=== PATIENT | female | born 1975 ===

== ENCOUNTER 2022-09-20 12:13 | Emergency (ER) | payer OTHER, SELFPAY ==
--- NOTE | 2022-09-20 12:39 | ED.HA ---
HPI - Headache General Chief Complaint: Headache Stated Complaint: pressure in head for 3/4 weeks, migraine Time Seen by Provider: 09/20/22 12:49 Source: patient Mode of arrival: ambulatory Limitations: no limitations History of Present Illness HPI Narrative: Patient is a 47 year old assigned female at with a history of migraines presenting to the emergency department today with nasal congestion and persistent migraine. Patient states that for the last few weeks she has been very congested and has had a right sided migraine. Patient states that her migraine medication helps some but she continues to have this full feeling. Patient denies any dizziness, lightheadedness, abdominal pain, nausea, vomiting, fever, chills, blurry vision, double vision, loss of vision, chest pain, difficulty breathing, shortness of breath, back pain, night sweats, pain with urination, increased urinary frequency, increased urinary urgency, blood in her urine or stool, syncope or a near syncopal episode, recent trauma or falls, bowel incontinence, bladder incontinence, bowel retention, bladder retention, or any other complaints at this time. MD elicited complaint: headache Severity: mild Quality & Timing: aching Exacerbating factors: none Related Data Previous Rx's Medication Instructions Recorded amoxicillin 875 mg-potassium 1 tab PO BID 7 days #14 tabs 09/20/22 clavulanate 125 mg tablet Allergies Allergy/AdvReac Type Severity Reaction Status Date / Time diclofenac Allergy Unknown Verified 09/20/22 12:44 doxycycline Allergy Rash Verified 09/20/22 12:44 ibuprofen [From Motrin] Allergy Gastrointestinal Verified 09/20/22 12:44 Upset levofloxacin Allergy Dizziness Verified 09/20/22 12:44 promethazine [From Phenergan] Allergy Anxiety Verified 09/20/22 12:44 ketorolac [From Toradol] AdvReac Hives Verified 09/20/22 12:44 Sulfa (Sulfonamide AdvReac Itching Verified 09/20/22 12:44 Antibiotics) tramadol [From Ultram] AdvReac Agitated Verified 09/20/22 12:44 Review of Systems Constitutional: Constitutional: Reports no additional constitutional complaints, Denies chills, Denies fever(s), Reports headache(s) and Denies night sweats Eyes: Eyes: Reports no additional eye complaints, Denies blurry vision, Denies change in vision, Denies diplopia, Denies eye discharge, Denies loss of vision and Denies eye pain ENT: Denies dizziness, Reports headache(s) and Reports nasal congestion Cardiovascular: Cardiovascular: Reports no additional cardiovascular complaints, Denies chest pain, Denies lightheadedness, Denies Loss of Consciousness and Denies dyspnea Respiratory: Respiratory: Reports no additional respiratory complaints and Denies dyspnea Gastrointestinal: Gastrointestinal: Reports no additional gastrointestinal complaints, Denies abdominal pain, Denies melena, Denies hematochezia, Denies change in bowel habits and Denies change in stool character Genitourinary: Genitourinary: Denies hematuria, Denies urinary frequency, Denies dysuria, Denies urinary incontinence, Denies urinary hesitancy and Denies urinary urgency Musculoskeletal: Musculoskeletal: Reports no additional musculoskeletal complaints, Denies numbness and Denies tingling Neurologic: Denies dizziness, Reports headache(s), Denies loss of vision, Denies numbness and Denies tingling Psychiatric: Psychiatric: Reports no additional psychiatric complaints Endocrine: Endocrine: Reports no additional endocrine complaints Hematologic/Lymphatic: Hematologic/Lymphatic: Reports no additional hematologic/lymphatic complaints Allergic/Immunologic: Allergic/Immunologic: Reports no additional allergic/immunologic complaints PMFSH Past Medical History Attestation statement: The following information was validated with the patient. Source: old records reviewed and nursing notes reviewed Social History Social History Advance Directives: No Advance Directives Information Provided: No Physical Exam Vital Signs: Vital Signs: Last Vital Signs Temp 98.8 F 09/20/22 12:40 Pulse 81 09/20/22 12:40 Resp 16 09/20/22 12:40 BP 106/78 09/20/22 12:40 Pulse Ox 98 09/20/22 12:40 O2 Del Method Room Air 09/20/22 12:40 BMI result Body Mass Index 25.7 Const: General: cooperative, no acute distress, alert and awake Nutritional Appearance: well nourished Orientation/consciousness: patient oriented x3 Limitations: no limitations HEENT: Head: Yes normal to inspection and Yes atraumatic Ears: hearing grossly normal bilaterally and external ears normal General nose exam: Normal external nose present, no nasal discharge noted and no epistaxis Face and sinus: Yes normal facial exam, No abrasion, No laceration and Yes sinus tenderness Mouth: Normal oral and palatal mucosa present, no drooling and no muffled voice Eyes: General: appearance normal, both eyes and all related structures Periorbital: periorbital findings normal Eyelids: Yes eyelids normal Conjunctivae: conjunctivae normal Pupils: Equal, round and reactive pupils present EOM: EOMs intact bilaterally Neck: Neck: Yes normal visual inspection, Yes full ROM and Yes no lymphadenopathy Chest: Chest palpation & inspection: normal inspection of the chest Resp: Effort & Inspection: normal respiratory effort and able to speak in complete sentences GI: Inspection: Yes normal to inspection Neuro: General: patient oriented x3 and moves all extremities Cranial nerves: Yes Equal, round and reactive pupils present Cognition (Neuro): normal cognition Motor exam (neuro): 5/5 motor strength present throughout Sensory Exam: Normal double simultaneous stimulation for sensation Coordination: [id number] test normal Extrem: General: Yes normal to inspection, Yes full ROM and Yes capillary refill normal Psych: Appearance: grossly normal Mental Status: mental status grossly normal Affect: normal affect Attitude: cooperative Thought process: Normal thought process present Thought content: Normal thought content present Insight: Good insight present (Psych) NIH Stroke Scale Internal: Initial- Upon Arrival Time: 12:39 Level of Consciousness: Alert Level of Consciousness Questions: Answers both questions correctly Level of Consciousness Commands: Performs both tasks correctly Best Gaze: Normal Visual: No visual loss Facial Palsy: Normal Motor Arm (Right): No drift Motor Arm (Left): No drift Motor Leg (Right): No drift Motor Leg (Left): No drift Limb Ataxia: Absent Sensory: Normal Best Language: No aphasia Dysarthia: Normal Extinction and Inattention: No abnormality Score: 0 Course Course Course Narrative: This is a rapid medical exam. Deferred additional HPI, ROS, PE to primary provider 47 yo female with history of migraines here with 3-4 weeks of headache, dizziness, head pressure, blurry vision bilateral, nausea, photophobia. Feels different from typical migraines. VSS Medical Decision Making Medical Decision Making MDM Narrative: Patient is a 47 year old assigned female at with a history of migraines presenting to the emergency department today with a headache and nasal congestion. Patient's physical exam was as noted in the physical examination portion of this chart. I explained my physical exam findings to the patient. I answered all questions asked by the patient. I stressed the importance of the patient taking her medication as prescribed. I stressed the importance of the patient following up with her primary care provider. I stressed the importance of the patient returning to the emergency department immediately if her symptoms were to worsen or if she were to develop any dizziness, shortness of breath, difficulty breathing, chest pain, blurry vision, loss of vision, nausea, vomiting, abdominal pain, fever, chills, back pain, or any other complaints. Patient verbalized agreement and understanding with this treatment plan and discharge. Differential Diagnosis Differential Diagnoses: The differential diagnosis associated with the presentation includes sinusitis, migraine Discharge Plan Discharge Clinical Impression: Sinusitis Patient Disposition: Home, Self-Care Instructions: Sinusitis (ED) Additional Instructions: Follow up with your primary care provider. Return to the emergency department immediately if your symptoms worsen or if you develop any dizziness, shortness of breath, difficulty breathing, chest pain, blurry vision, loss of vision, nausea, vomiting, abdominal pain, fever, chills, back pain, or any other complaints. Prescriptions: New amoxicillin-pot clavulanate 875-125 mg tablet 1 tab PO BID 7 Days Qty: 14 0RF Referrals: [facility] [[place] Group] (Call to establish and follow up with a primary care provider. If you already have a primary care provider, please follow up with them.) [facility] [Provider Group] (Call to establish and follow up with a primary care provider. If you already have a primary care provider, please follow up with them.) [facility] [Provider Group] (Call to establish and follow up with a primary care provider. If you already have a primary care provider, please follow up with them.) Stand Alone Forms: Work/School Release Interventions: ED Discharge Assessment Last Done: 09/20/22 13:01 Discharge Date/Time: 09/20/22 13:06 Print Language: Bahraini
[2022-09-20 12:40] VITALS: BP 106/78; PULSE 81; RESP 16; TEMP 37.1; O2SAT 98; BMI 25.7
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
== END 2022-09-20 13:06 | disposition home or self-care (01) ==
LOC: HO.ED 13:03
PROVIDERS: Emergency Provider Emergency Medicine; PCP Nurse Practitioner Family
DX: J32.9 Chronic sinusitis, unspecified (principal); R51.9 Headache, unspecified
CPT/HCPCS: 99283; 99284

== ENCOUNTER 2022-09-28 06:06 | Emergency (ER) | payer OTHER, SELFPAY ==
--- NOTE | ~2022-09-28 | CT_ITS ---
EXAMINATION: CT ANGIOGRAM HEAD CT ANGIOGRAM NECK CLINICAL INFORMATION: Headache. Neck pain. Blurry vision. Right upper extremity tingling. COMPARISON: Headache. Neck pain. Blurry vision. Right upper extremity tingling. TECHNIQUE: Initial noncontrast cement truck loader imaging of the head and neck was performed. Noncontrast head CT was also performed. Test bolus sequences followed by intravenous administration 70 mL of Omnipaque 350. Helical imaging was performed in the axial plane from the aortic arch to the skull vertex. Delayed postcontrast imaging of the head was also performed. The data was processed at the marketing technologist's workstation for generation of MIP sequences. Angled MIPs and volume rendered reformatted images were also generated at an offline 3D workstation. Stenoses are assessed in accordance with NASCET criteria unless otherwise indicated. This CT examination was performed using dose optimization techniques as appropriate, variously including the following: *Automated exposure control. *Adjustment of mA and/or kV according to patient size (this includes techniques or standardized protocols for targeted exams where dose is matched to indication/reason for exam; i.e. extremities or head). *Use of iterative reconstruction technique. DLP: 2014 mGy-cm FINDINGS: CT Head: There is no evidence of acute intracranial hemorrhage or edematous territorial infarction. There is no abnormal attenuation within the brain parenchyma. Thompson-white matter differentiation is preserved. The ventricles are normal in size and configuration. No evidence for obstructive hydrocephalus. The suprasellar cistern remains widely patent. No abnormal mass effect or midline shift. No extra-axial fluid collections. No pathologic intra-axial enhancement or regional oligemia. No acute soft tissue or osseous abnormalities. Mild mucosal thickening of the paranasal sinuses. Moderate rightward nasal septal deviation with spurring. Left-sided reema bullosa. The mastoid air cells and middle ear cavities are clear. No demonstrated abnormalities of the orbits. CT Neck: The thyroid gland and remaining cervical soft tissues are within normal limits. Straightening of the normal cervical lordosis. Moderate degenerative disc disease at C4-C5 and C5-C6. Facet and uncovertebral joint arthropathy leads to osseous encroachment on the neural foramina at C4-C5. CT Upper Chest: The visualized lung apices and upper mediastinum are within normal limits. Neck CTA: Aortic Arch: Normal contour and caliber. Classic 3 vessel branching pattern of the aortic arch. Great Vessel Origins: No significant stenosis of the branch origins. Right Common Carotid Artery: No focal stenosis or occlusion. Cervical Right Internal Carotid Artery: Normal opacification without focal stenosis or occlusion. Left Common Carotid Artery: No focal stenosis or occlusion. Cervical Left Internal Carotid Artery: Normal opacification without focal stenosis or occlusion. Cervical Right Vertebral Artery: Mildly dominant. No focal stenosis or occlusion. Cervical Left Vertebral Artery: No focal stenosis or occlusion. Brain CTA: Intracranial Internal Carotid Arteries: No focal stenosis or occlusion. Right Anterior Cerebral Artery: Normal A1 segment. Normal opacification of the distal SUSIE segments. Left Anterior Cerebral Artery: Normal A1 segment. Normal opacification of the distal SUSIE segments. Anterior Communicating Artery: Normal. Right Middle Cerebral Artery: Normal M1 segment of the MCA without focal stenosis or occlusion. Normal arborization of the distal segments. Left Middle Cerebral Artery: Normal M1 segment of the MCA without focal stenosis or occlusion. Normal arborization of the distal segments. Right Vertebral Artery: Normal V4 segment. Normal opacification of the proximal segments of the posterior inferior cerebellar artery. Left Vertebral Artery: Normal V4 segment. Normal opacification of the proximal segments of the posterior inferior cerebellar artery. Basilar Artery: Normal without focal stenosis or occlusion. Normal appearance of the proximal superior cerebellar arteries. Right Posterior Cerebral Artery: Normal P1 segment. Normal opacification of the distal HEAD FILTER PRESS TENDER segments. Left Posterior Cerebral Artery: Normal P1 segment. Normal opacification of the distal HEAD FILTER PRESS TENDER segments. Normal opacification of the superior sagittal, straight, transverse, and sigmoid sinuses. CT/CT angio head neck IMPRESSION: 1. No evidence of acute intracranial hemorrhage or edematous territorial infarction. 2. CTA of the head and neck without proximal occlusion or flow-limiting stenosis.
[2022-09-28 06:23] VITALS: BP 108/82; PULSE 83; RESP 18; TEMP 36.8; O2SAT 98; BMI 29.2
--- NOTE | 2022-09-28 06:35 | ED_ITS ---
HPI - URI/Sore Throat General Chief Complaint: Upper Respiratory Symptoms Stated Complaint: Sinus infection?+ Time Seen by Provider: 09/28/22 06:33 Source: patient, RN notes reviewed and old records reviewed Mode of arrival: ambulatory History of Present Illness HPI Narrative: 47-year-old female with past medical history of migraines on sumatriptan presenting to the ED complaining of sinus pressure, headache, and upper neck pain 3-4 weeks. Admits this recently seen and treated in our ED on 09/20 for similar symptoms prescribed Augmentin without relief. Describes discomfort as pressure and feeling like head is going to explode. Has been taking sumatriptan with little relief. Admits to associated bilateral blurry vision and pain radiating down LUE with intermittent tingling. Denies vision loss, nausea/vomiting, CP/SOB, focal weakness. Denies taking AC. Headache not maximal in onset Related Data Previous Rx's Medication Instructions Recorded amoxicillin 875 mg-potassium 1 tab PO BID 7 days #14 tabs 09/20/22 clavulanate 125 mg tablet clindamycin HCl 300 mg capsule 300 mg PO Q8H 7 days #21 caps 09/28/22 cyclobenzaprine 5 mg tablet 5 mg PO Q8H PRN pain (scale score 09/28/22 7-10) 5 days #14 tabs fluticasone propionate 50 2 spray intranasal DAILY #16 grams 09/28/22 mcg/actuation nasal spray,suspension (Flonase Allergy Relief) Allergies Allergy/AdvReac Type Severity Reaction Status Date / Time acetaminophen [From Tylenol] Allergy Rash Verified 09/28/22 09:56 diclofenac Allergy Unknown Verified 09/20/22 12:44 doxycycline Allergy Rash Verified 09/20/22 12:44 ibuprofen [From Motrin] Allergy Gastrointestinal Verified 09/20/22 12:44 Upset levofloxacin Allergy Dizziness Verified 09/20/22 12:44 promethazine [From Phenergan] Allergy Anxiety Verified 09/20/22 12:44 ketorolac [From Toradol] AdvReac Hives Verified 09/20/22 12:44 Sulfa (Sulfonamide AdvReac Itching Verified 09/20/22 12:44 Antibiotics) tramadol [From Ultram] AdvReac Agitated Verified 09/20/22 12:44 Review of Systems Review of Systems: Constitutional: No Fever, No Chills, No Fatigue, No Malaise ENT/Mouth: + Ear Pain, + Nasal Congestion, + Sinus Pain, No Hoarseness, No sore throat, + Rhinorrhea, No Swallowing Difficulty Eyes: No Eye Pain, No Swelling, No Redness, + Vision Changes Cardiovascular: No Chest Pain, No SOB, No Edema, No Palpitations Respiratory: No Cough, No Sputum, No Dyspnea Gastrointestinal: No Nausea, No Vomiting, No Diarrhea, No Constipation, No Abdominal pain Musculoskeletal: No joint pain, No Myalgias, No Joint Swelling Skin: No Skin Lesions, No rash Neuro: No Weakness, No Numbness, + Paresthesias, No Loss of Consciousness, No Dizziness, + Headache Yes all other systems are reviewed and are negative Constitutional: Constitutional: Reports as per HPI Neurologic: Denies Abnormal speech present [facility] Past Medical History Attestation statement: The following information was validated with the patient. Source: old records reviewed Social History Social History Advance Directives: No Advance Directives Information Provided: No Physical Exam Vital Signs: Vital Signs: Last Vital Signs Temp 98.1 F 09/28/22 12:02 Pulse 70 09/28/22 12:02 Resp 18 09/28/22 12:02 BP 109/78 09/28/22 12:02 Pulse Ox 97 09/28/22 12:02 O2 Del Method Room Air 09/28/22 12:02 BMI result Body Mass Index 29.2 Const: General: cooperative, healthy appearing and no acute distress Orientation/consciousness: patient oriented x3 Limitations: no limitations HEENT: Head: Yes normal to inspection and Yes atraumatic Ears: hearing grossly normal bilaterally, external ears normal, TM's normal bilaterally and mastoids normal General nose exam: Normal external nose present Face and sinus: Yes normal facial exam and Yes sinus tenderness (Maxillary and ethmoid) Mouth: Normal oral and palatal mucosa present Throat: Yes posterior oropharynx normal, Yes tonsils normal, Yes uvula midline, No uvula laterally displaced and No uvular edema Eyes: General: appearance normal, both eyes and all related structures EOM: EOMs intact bilaterally Neck: Other: + bilateral paraspinal cervical tenderness and bilateral trapezius muscle tenderness to palpation reproducing subjective complaint Neck: Yes normal visual inspection, Yes no meningeal signs, Yes trachea mi dline, Yes supple, No anterior neck swelling and No torticollis Resp: Effort & Inspection: normal respiratory effort and no respiratory distress Auscultation: clear to auscultation bilaterally Cardio: Rate: regular rate Heart sounds: S1 normal heart sound present and S2 normal heart sound present GI: Inspection: Yes normal to inspection Palpation (GI): Soft to palpation, nontender, no guarding and not rigid Skin: Rashes: no rashes Wounds: no wounds Neuro: General: patient oriented x3, gait normal, tone normal, moves all extremities, no meningeal signs, no focal motor deficits and CN's II-XI intact bilaterally Cranial nerves: Yes CN's II-XII intact bilaterally and Yes Bilaterally intact EOM present Cognition (Neuro): normal cognition Speech: No Abnormal speech present Gait exam (Neuro): Normal gait present Motor exam (neuro): 5/5 motor strength present throughout Extrem: General: Yes normal to inspection Course Course Course Narrative: -labs reassuring -COVID, influenza, and rapid strep negative 1151--CT angio head neck IMPRESSION: 1.? No evidence of acute intracranial hemorrhage or edematous territorial infarction. 2.? CTA of the head and neck without proximal occlusion or flow-limiting stenosis. > 1156--results discussed with patient. Reports mild symptomatic improvement at present. Will discharge with additional antibiotic, Flonase, and Flexeril, discussed close follow-up with PCP, she verbalized understanding feel safe for discharge home at this time Results discussed with patient including worrisome signs and symptoms and strict return precautions, and when to return to the emergency department. They verbalized understanding and feel safe for discharge at this time. Medications Administered Discontinued Medications Generic Name Dose Route Start Last Admin Trade Name Anneliese PRN Reason Stop Dose Admin Acetaminophen 650 mg 09/28/22 06:50 09/28/22 11:11 Acetaminophen 325 Mg Tablet PO 09/28/22 06:51 Not Given ONCE ONE Fluticasone Propionate 2 spray 09/28/22 09:34 09/28/22 11:59 Fluticasone Propionate Nasal 16 Gm [place] NOSTRIL-B 09/28/22 09:35 2 spray ONCE ONE Administration Sodium Chloride 1,000 mls @ 999 mls/hr 09/28/22 07:00 09/28/22 11:59 Ns IV 09/28/22 08:00 Infused .Q1H1M CELINA Infusion Iohexol 70 ml 09/28/22 09:46 09/28/22 09:46 Iohexol 350 Mg/Ml 100 Ml Infus..Btl IV 09/28/22 09:47 70 ml ONCE ONE Administration Medical Decision Making Medical Decision Making [facility] Narrative: 47-year-old female with past medical history of migraines on sumatriptan presenting to the ED complaining of sinus pressure, headache, and upper neck pain 3-4 weeks. On exam vital signs stable, NAD, nontoxic appearing, sinus tenderness, bilateral cervical paraspinal tenderness noted, no focal neuro deficits. Concern for persistent sinusitis vs complicated migraine headache vs atypical ACS vs MSK pain/myalgias. Lower suspicion for TIA/CVA or cervical dissection. Unlikely meningitis/encephalitis, no meningeal signs. Plan: Labs, COVID/flu, rapid strep, CTA head and neck, IVF Please refer to course for remaining clinical decision making, interpretation of labs/imaging results, and discussions with consultants and/or family members. Differential Diagnosis Differential Diagnoses: The differential diagnosis associated with the presentation includes As above Admission/Observation Consideration of admission/observation: Escalation of care including admission/observation considered Lab Data [facility] Lab Attestation statement: I reviewed the patient's lab results. 09/28/22 07:01 09/28/22 07:01 Labs: Lab Results 09/28/22 09/28/22 09/28/22 Range/Units 07:01 07:01 07:01 WBC 7.2 (4.8-10.8) X10*3/uL RBC 4.25 (4.20-5.50) X10*6/uL Hgb 13.7 (12.0-16.0) g/dl Hct 40.6 (37.0-47.0) % MCV 95.5 (80.0-98.0) fL MCH 32.2 (27.0-33.0) pg MCHC 33.7 (31.0-35.0) g/dl RDW 13.0 (11.0-16.0) % Plt Count 287 (160-400) X10*3/uL MPV 9.5 (9.4-12.3) fL Immature Gran % (Auto) 0.3 (0.0-0.4) % Neut % (Auto) 59.5 (45-73) % Lymph % (Auto) 23.3 (20-40) % [place] % (Auto) 12.6 H (2-11) % Eos % (Auto) 3.6 (0-4) % Baso % (Auto) 0.7 (0-2) % Lymph # (Auto) 1.7 (1.2-4.9) X10*3/uL [place] # (Auto) 0.9 (0.1-1.2) X10*3/uL Eos # (Auto) 0.3 (0.0-0.4) X10*3/uL Baso # (Auto) 0.1 (0.0-0.2) X10*3/uL Abs Immat Gran (auto) 0.02 (0.00-0.03) X10*3/uL Absolute Neuts (auto) 4.3 (2.0-8.3) x10*3/uL Absolute Nucleated RBC 0.000 (0.0-0.012) X10*3/uL Nucleated RBC % (auto) 0.0 (0.0-0.2) /100WBC PT 10.7 (10.0-13.1) SEC INR 0.9 (0.9-1.1) Sodium 141 (135-145) mmol/L Potassium 4.2 (3.3-5.1) mmol/L Chloride 108 (96-108) mmol/L Carbon Dioxide 25 (22-29) mmol/L Anion Gap 12 (12-20) BUN 16 (9-16) mg/dL Creatinine 0.76 (0.5-1.4) mg/dL Estim Creat Clear Calc 76.9 Estimated GFR > 60 Random Glucose 87 (60-115) mg/dL Calcium 9.9 (8.4-10.2) mg/dL Magnesium 2.3 (1.6-2.6) mg/dL Total Bilirubin 0.3 (0.0-1.0) mg/dL Direct Bilirubin 0.1 (0.0-0.5) mg/dL AST 19 (5-31) U/L ALT 17 (0-31) U/L Alkaline Phosphatase 82 (39-117) U/L Total Protein 7.4 (6.5-8.0) g/dL Albumin 4.4 (3.5-5.0) g/dL COVID-19 (ERUM) (Negative) COVID-19 Clin Com Influenza Type A (MIGUEL ANGEL) (Negative) Influenza Type B (MIGUEL ANGEL) (Negative) Influenza A & B Note S. pyogenes GrpA MIGUEL ANGEL (Negative) 09/28/22 09/28/22 09/28/22 Range/Units 07:01 07:01 08:43 WBC (4.8-10.8) X10*3/uL RBC (4.20-5.50) X10*6/uL Hgb (12.0-16.0) g/dl Hct (37.0-47.0) % MCV (80.0-98.0) fL MCH (27.0-33.0) pg MCHC (31.0-35.0) g/dl RDW (11.0-16.0) % Plt Count (160-400) X10*3/uL MPV (9.4-12.3) fL Immature Gran % (Auto) (0.0-0.4) % Neut % (Auto) (45-73) % Lymph % (Auto) (20-40) % [place] % (Auto) (2-11) % Eos % (Auto) (0-4) % Baso % (Auto) (0-2) % Lymph # (Auto) (1.2-4.9) X10*3/uL [place] # (Auto) (0.1-1.2) X10*3/uL Eos # (Auto) (0.0-0.4) X10*3/uL Baso # (Auto) (0.0-0.2) X10*3/uL Abs Immat Gran (auto) (0.00-0.03) X10*3/uL Absolute Neuts (auto) (2.0-8.3) x10*3/uL Absolute Nucleated RBC (0.0-0.012) X10*3/uL Nucleated RBC % (auto) (0.0-0.2) /100WBC PT (10.0-13.1) SEC INR (0.9-1.1) Sodium (135-145) mmol/L Potassium (3.3-5.1) mmol/L Chloride (96-108) mmol/L Carbon Dioxide (22-29) mmol/L Anion Gap (12-20) BUN (9-16) mg/dL Creatinine (0.5-1.4) mg/dL Estim Creat Clear Calc Estimated GFR Random Glucose (60-115) mg/dL Calcium (8.4-10.2) mg/dL Magnesium (1.6-2.6) mg/dL Total Bilirubin (0.0-1.0) mg/dL Direct Bilirubin (0.0-0.5) mg/dL AST (5-31) U/L ALT (0-31) U/L Alkaline Phosphatase (39-117) U/L Total Protein (6.5-8.0) g/dL Albumin (3.5-5.0) g/dL COVID-19 (ERUM) Negative (Negative) COVID-19 Clin Com See Note Influenza Type A (MIGUEL ANGEL) Negative (Negative) Influenza Type B (MIGUEL ANGEL) Negative (Negative) Influenza A & B Note See Note S. pyogenes GrpA MIGUEL ANGEL Negative (Negative) Radiology Impression Discussion of test interpretation with radiology: I have reviewed the radiolog ist's reading. External Record Review External record reviewed: Inpatient record, Office record, Outpatient record, Prior outpatient labs, Prior outpatient radiology, Primary care record and Outside ED record Tests considered The following testing was considered but not selected: As above Prescription Management I considered prescription management with: Pain Medication and Antibiotic Chronic Conditions Patient?s care impacted by: Other (Migraine) Discharge Plan Discharge Clinical Impression: Sinusitis, Complicated migraine Patient Disposition: Home, Self-Care Instructions: Sinusitis (ED), Migraine Headache (ED) Additional Instructions: Your blood work and CT scan were reassuring Clindamycin as an antibiotic please take as prescribed. Flonase and nasal decongestion which will help drain her sinuses Cyclobenzaprine is a muscle relaxer, take at night as it makes you drowsy, do not drive, drink alcohol or operate machinery while taking. Please follow up with her doctor, you should also follow-up with ENT Is symptoms persist or worsen return to ED Prescriptions: New clindamycin HCl 300 mg capsule 300 mg PO Q8H 7 Days Qty: 21 0RF fluticasone propionate [Flonase Allergy Relief] 50 mcg/actuation spray,suspension 2 spray intranasal DAILY Qty: 16 0RF Rx Instructions: administer into each nostril cyclobenzaprine 5 mg tablet 5 mg PO Q8H PRN (Reason: pain (scale score 7-10)) 5 Days Qty: 14 0RF No Action amoxicillin-pot clavulanate 875-125 mg tablet 1 tab PO BID 7 Days Qty: 14 0RF Referrals: Maxime Arias [Physician] - Venus Berry CHAIR TRIMMER [Primary Care Provider] - Interventions: ED Discharge Assessment Last Done: 09/28/22 13:42 Discharge Date/Time: 09/28/22 13:43
[2022-09-28 07:07] LABS: MANUAL DIFF FLAG NO
[2022-09-28 07:15] LABS: INTERNATIONAL NORM RATIO 0.9 (0.9-1.1); Prothrombin Time 10.7 SEC (10.0-13.1)
[2022-09-28 07:16] LABS: Basophils Absolute Auto 0.1 X10*3/uL (0.0-0.2); Basophils Percent Auto 0.7 % (0-2); Eosinophils Absolute Auto 0.3 X10*3/uL (0.0-0.4); Eosinophils Percent Auto 3.6 % (0-4); Hematocrit 40.6 % (37.0-47.0); Hemoglobin 13.7 g/dl (12.0-16.0); Imm Gran Abs Auto 0.02 X10*3/uL (0.00-0.03); Imm Gran Pct Auto 0.3 % (0.0-0.4); Lymphocytes Absolute Auto 1.7 X10*3/uL (1.2-4.9); Lymphocytes Percent Auto 23.3 % (20-40); Mean Corpuscular HGB Conc 33.7 g/dl (31.0-35.0); Mean Corpuscular Hemoglobin 32.2 pg (27.0-33.0); Mean Corpuscular Volume 95.5 fL (80.0-98.0); Mean Platelet Volume 9.5 fL (9.4-12.3); Monocytes Absolute Auto 0.9 X10*3/uL (0.1-1.2); Monocytes Percent Auto 12.6 % (2-11); Neutrophils Absolute Auto 4.3 x10*3/uL (2.0-8.3); Neutrophils Percent Auto 59.5 % (45-73); Platelet Count 287 X10*3/uL (160-400); Red Blood Count 4.25 X10*6/uL (4.20-5.50); White Blood Count 7.2 X10*3/uL (4.8-10.8)
[2022-09-28 07:25] LABS: Alanine Aminotransferase 17 U/L (0-31); Albumin Level 4.4 g/dL (3.5-5.0); Alkaline Phosphatase 82 U/L (39-117); Anion Gap 12 (12-20); Aspartate Amino Transferase 19 U/L (5-31); Bilirubin Direct 0.1 mg/dL (0.0-0.5); Bilirubin Total 0.3 mg/dL (0.0-1.0); Blood Urea Nitrogen 16 mg/dL (9-16); Calcium 9.9 mg/dL (8.4-10.2); Carbon Dioxide 25 mmol/L (22-29); Chloride 108 mmol/L (96-108); Creatinine Clr Calc Pharmacy 76.9; Estimated Glomerular Filt Rate > 60; Glucose Random 87 mg/dL (60-115); Magnesium 2.3 mg/dL (1.6-2.6); Potassium 4.2 mmol/L (3.3-5.1); Sodium 141 mmol/L (135-145); Total Protein 7.4 g/dL (6.5-8.0)
[2022-09-28 07:35] LABS: COVID-19 Test Negative (Negative); IDNOW Serial# 08D9AD1C; IDNOW Serial# BCCEAD1C
[2022-09-28 07:36] LABS: Influenza A Negative (Negative); Influenza B2 Negative (Negative)
[2022-09-28 08:37] VITALS: BP 107/74; PULSE 67; RESP 16; TEMP 36.8; O2SAT 97
[2022-09-28 09:45] LABS: IDNOW Serial# 08D9AD1C; Strep A Nucleic Acid Negative (Negative)
[2022-09-28] MEDS: iohexoL 350 MG/ML 100 ML INFUS..BTL 70 ML IV (09:46)
[2022-09-28 10:10] VITALS: BP 102/74; PULSE 59; RESP 16; TEMP 36.7; O2SAT 98
[2022-09-28] MEDS: 0.9 % Sodium Chloride 1,000 ML 999 ML IV (10:21)
[2022-09-28] MEDS: Fluticasone Propionate Nasal 16 GM SPRAY 2 SPRAY NOSTRIL-B (11:59)
[2022-09-28 12:02] VITALS: BP 109/78; PULSE 70; RESP 18; TEMP 36.7; O2SAT 97
== END 2022-09-28 13:43 | disposition home or self-care (01) ==
PROVIDERS: Physician Assistant; Emergency Provider Emergency Medicine; PCP Nurse Practitioner Family
DX: J32.9 Chronic sinusitis, unspecified (principal); G43.109 Migraine with aura, not intractable, without status migrainosus; Z20.822 Contact with and (suspected) exposure to COVID-19
CPT/HCPCS: 36415; 70496; 70498; 80048; 80076; 83735; 85025; 85610; 87502; 87635; 87651; 96360; 99284; Q9967

== ENCOUNTER 2023-02-07 16:36 | Emergency (ER) | payer OTHER, SELFPAY ==
[2023-02-07 16:49] VITALS: BP 98/71; PULSE 75; RESP 22; TEMP 36.8; O2SAT 97; BMI 26.4
--- NOTE | 2023-02-07 16:52 | ED.FEMALEGU ---
HPI - Female Genitourinary General Chief complaint: Urogenital-Female Stated complaint: kidney episode Time Seen by Provider: 02/07/23 19:42 Related Data Previous Rx's Medication Instructions Recorded amoxicillin 875 mg-potassium 1 tab PO BID 7 days #14 tabs 09/20/22 clavulanate 125 mg tablet clindamycin HCl 300 mg capsule 300 mg PO Q8H 7 days #21 caps 09/28/22 cyclobenzaprine 5 mg tablet 5 mg PO Q8H PRN pain (scale score 09/28/22 7-10) 5 days #14 tabs fluticasone propionate 50 2 spray intranasal DAILY #16 grams 09/28/22 mcg/actuation nasal spray,suspension (Flonase Allergy Relief) Allergies Allergy/AdvReac Type Severity Reaction Status Date / Time acetaminophen [From Tylenol] Allergy Rash Verified 02/07/23 16:52 diclofenac Allergy Unknown Verified 02/07/23 16:52 doxycycline Allergy Rash Verified 02/07/23 16:52 ibuprofen [From Motrin] Allergy Gastrointestinal Verified 02/07/23 16:52 Upset levofloxacin Allergy Dizziness Verified 02/07/23 16:52 promethazine [From Phenergan] Allergy Anxiety Verified 02/07/23 16:52 ketorolac [From Toradol] AdvReac Hives Verified 02/07/23 16:52 Sulfa (Sulfonamide AdvReac Itching Verified 02/07/23 16:52 Antibiotics) tramadol [From Ultram] AdvReac Agitated Verified 02/07/23 16:52 PMFSH Social History Social History Advance Directives: No Advance Directives Information Provided: No Physical Exam Vital Signs: Vital Signs: Last Vital Signs Temp 98.2 F 02/07/23 16:49 Pulse 75 02/07/23 16:49 Resp 22 H 02/07/23 16:49 BP 98/71 02/07/23 16:49 Pulse Ox 97 02/07/23 16:49 O2 Del Method Room Air 02/07/23 16:49 BMI result Body Mass Index 26.4 Course Course Course Narrative: This is a rapid medical exam: Additional HPI, ROS, PE not included below will be deferred to primary provider. Patient is a 48-year-old female with history of kidney stones presenting to the ED with complaint of right flank pain, dysuria, and hematuria for the past 3 days. States she experiences renal colic every 6 months or so. Has seen a urologist. Plan: UA Medical Decision Making Lab Data Labs: Lab Results 02/07/23 Range/Units 19:33 Urine Color Yellow Urine Appearance Cloudy Urine pH 6.5 (5.0-9.0) Ur Specific [place] >= 1.030 H (1.005-1.025) Urine Protein Trace (Neg-Trace) mg/dL Urine Glucose (UA) Negative (Negative) mg/dL Urine Ketones Trace (Negative) mg/dL Urine Blood Small (1+) H (Negative) Urine Nitrite Negative (Negative) Ur Leukocyte Esterase Negative (Negative) Urine RBC 6-10 H (0-2) /HPF Urine WBC 0-5 (0-5) /HPF Ur Squamous Epith Cells 11-20 (0-2) /HPF Urine Bacteria 3+ (None Seen) Hyaline Casts 3-5 (0-2) /LPF Urine Test NEGATIVE (NEGATIVE) Discharge Plan Discharge Clinical Impression: Right flank pain Patient Disposition: Left W/O Completing Treatment Prescriptions: No Action clindamycin HCl 300 mg capsule 300 mg PO Q8H 7 Days Qty: 21 0RF fluticasone propionate [Flonase Allergy Relief] 50 mcg/actuation spray,suspension 2 spray intranasal DAILY Qty: 16 0RF Rx Instructions: administer into each nostril cyclobenzaprine 5 mg tablet 5 mg PO Q8H PRN (Reason: pain (scale score 7-10)) 5 Days Qty: 14 0RF amoxicillin-pot clavulanate 875-125 mg tablet 1 tab PO BID 7 Days Qty: 14 0RF Discharge Date/Time: 02/07/23 19:53
[2023-02-07 19:45] LABS: Appearance Urine Cloudy; Color Urine Yellow; Glucose Urine UA Negative (Negative); Leukocyte Esterase Urine Negative (Negative); Nitrite Urine Negative (Negative); PH 6.5 (5.0-9.0); Specific Gravity - Urine >= 1.030 (1.005-1.025); UMIC TRIGGER UACC YES; Urine Blood Small (1+) (Negative); Urine Ketones Trace mg/dL (Negative); Urine Protein Trace mg/dL (Neg-Trace)
[2023-02-07 19:46] LABS: UPreg QC Valid YES; Urine Pregnancy NEGATIVE (NEGATIVE)
[2023-02-07 19:47] LABS: Bacteria Urine 3+ (None Seen); WBC Urine 0-5 /HPF (0-5)
== END 2023-02-07 19:53 | disposition left against medical advice (07) ==
PROVIDERS: Registered Nurse Emergency; Emergency Provider Emergency Medicine; PCP Nurse Practitioner Family
DX: R10.9 Unspecified abdominal pain (principal); Z79.899 Other long term (current) drug therapy
CPT/HCPCS: 81001; 81025; 99282

== ENCOUNTER 2023-08-13 05:06 | Emergency (ER) | payer OTHER, SELFPAY ==
[2023-08-13 05:11] VITALS: BP 109/78; PULSE 84; RESP 16; TEMP 37.1; O2SAT 95; BMI 29.7
--- NOTE | 2023-08-13 07:27 | ED_ITS ---
HPI - Extremity Problem General Chief complaint: Extremity Problem Stated complaint: pain due to arthritis Time Seen by Provider: 08/13/23 07:04 Source: patient Mode of arrival: ambulatory Limitations: no limitations History of Present Illness HPI Narrative: 48-year-old female with a history of bilateral hip arthritis, being followed by doing orthopedics who presents to the ER for evaluation of acute on chronic b ilateral hip pain. She states the pain has been present for years and has been slowly getting worse. She states for the last 3 days the pain has been severe, worse in the mornings and at night, having difficulty sleeping. She was placed on tizanidine 2 mg p.r.n. by her orthopedist with no relief. She is due to start physical therapy September 14. She had an MRI that showed arthritis in both of her hips. She denies any history of inflammatory arthritis. No injury or falls recently. MD Complaint: joint pain Onset (ago): year(s) Pain Consistency: constant Location: left and right Severity scale (1-10): 10 Quality: stabbing and aching Radiation: distal Relieving factors: immobilization Exacerbating factors: weight bearing and palpation Associated symptoms: denies other symptoms Related Data Previous Rx's ?Medication ?Instructions ?Recorded amoxicillin 875 mg-potassium 1 tab PO BID 7 days #14 tabs 09/20/22 clavulanate 125 mg tablet clindamycin HCl 300 mg capsule 300 mg PO Q8H 7 days #21 caps 09/28/22 cyclobenzaprine 5 mg tablet 5 mg PO Q8H PRN pain (scale score 09/28/22 7-10) 5 days #14 tabs fluticasone propionate 50 2 spray intranasal DAILY #16 grams 09/28/22 mcg/actuation nasal spray,suspension (Flonase Allergy Relief) cyclobenzaprine 10 mg tablet 10 mg PO TID PRN muscle spasm #14 08/13/23 tabs lidocaine 5 % topical patch 1 patch topical DAILY #15 ea 08/13/23 prednisone 50 mg tablet 50 mg PO DAILY #5 tabs 08/13/23 Allergies Allergy/AdvReac Type Severity Reaction Status Date / Time acetaminophen [From Tylenol] Allergy Rash Verified 08/13/23 05:14 diclofenac Allergy Unknown Verified 08/13/23 05:14 doxycycline Allergy Rash Verified 08/13/23 05:14 ibuprofen [From Motrin] Allergy Gastrointestinal Verified 08/13/23 05:14 Upset levofloxacin Allergy Dizziness Verified 08/13/23 05:14 promethazine [From Phenergan] Allergy Anxiety Verified 08/13/23 05:14 ketorolac [From Toradol] AdvReac Hives Verified 08/13/23 05:14 Sulfa (Sulfonamide AdvReac Itching Verified 08/13/23 05:14 Antibiotics) tramadol [From Ultram] AdvReac Agitated Verified 08/13/23 05:14 Review of Systems Review of Systems: Yes all other systems are reviewed and are negative [facility] Social History Social History Advance Directives: No Advance Directives Information Provided: No Do you have a plan to hurt others: No Plan Physical Exam Vital Signs: Vital Signs: Last Vital Signs Temp 98.7 F 08/13/23 05:11 Pulse 84 08/13/23 05:11 Resp 16 08/13/23 05:11 BP 109/78 08/13/23 05:11 Pulse Ox 95 08/13/23 05:11 O2 Del Method Room Air 08/13/23 05:11 BMI result Body Mass Index 29.7 Appearance: Alert. Oriented X3. No acute distress. Head: normocephalic, atraumatic. Eyes: Pupils equal, round and reactive to light. ENT: Pharynx normal. No tonsillar swelling or exudate. Neck: Normal inspection. Neck supple. CVS: Normal heart rate and rhythm. Pulses normal. Respiratory: No respiratory distress. Breath sounds normal. Back: Normal inspection, tenderness of the lumbar area diffusely with palpable muscle spasm. Limited flexion of the spine due to pain Skin: Skin warm and dry. Normal skin color. Normal skin turgor. No rashes. Extremities: No lower extremity edema. No joint swelling. Pelvis is stable with tenderness to the bilateral iliac crests and lateral hips. Patient is ambulatory with a slow but steady gait. Pain with passive flexion of the hips. Neuro/psych: Oriented X 3. No motor deficit. No sensory deficit. CN II-XII intact. Normal speech and cognition. DTRs intact Medical Decision Making Medical Decision Making MDM Narrative: 48-year-old female with known bilateral hip arthritis on recent MRI at [facility] who presents to the ER for evaluation of acute on chronic bilateral hip pain. No recent trauma. History and clinical presentation are consistent with osteoarthritis as pain is worse in the mornings and gets better throughout the day with movement. She has allergies to diclofenac, Toradol, ibuprofen. History of hives. Will start patient on short course of prednisone for anti-inflammatory effects given her allergy to NSAIDs. Will advise her to stop the tizanidine and will give a trial of Flexeril for associated muscle spasms. She was encouraged to follow back up with her orthopedist for possible other interventions. At this time patient is ambulatory, stable for discharge home. Differential Diagnosis Differential Diagnoses: The differential diagnosis associated with the presentation includes Osteoarthritis, inflammatory arthritis, avascular necrosis, fracture less likely given recent imaging External Record Review External record reviewed: Prior outpatient labs Tests considered The following testing was considered but not selected: considered xrays but patient had MRI recently and no trauma Prescription Management I considered prescription management with: Pain Medication and Other Chronic Conditions Patient?s care impacted by: Other (OA) Critical Care Time Critical Care Time Critical Care Time: No Discharge Plan Discharge Clinical Impression: Arthritis of hip Patient Disposition: Home, Self-Care Instructions: Osteoarthritis (DC) Additional Instructions: Recommend stopping the previously prescribed tizanidine Start the new muscle relaxer called cyclobenzaprine. Do not drive after taking this medication, it may make you sleepy. Take the prescribed course of steroids to help with pain and inflammation. Follow-up with your orthopedic provider. If you develop new or worsening symptoms call 911 or come back to the ER for further evaluation. Prescriptions: New prednisone 50 mg tablet 50 mg PO DAILY Qty: 5 0RF cyclobenzaprine 10 mg tablet 10 mg PO TID PRN (Reason: muscle spasm) Qty: 14 0RF lidocaine 5 % adhesive patch,medicated 1 patch topical DAILY Qty: 15 0RF Rx Instructions: leave on most painful area for up to 12 hrs No Action clindamycin HCl 300 mg capsule 300 mg PO Q8H 7 Days Qty: 21 0RF fluticasone propionate [Flonase Allergy Relief] 50 mcg/actuation spray,suspension 2 spray intranasal DAILY Qty: 16 0RF Rx Instructions: administer into each nostril cyclobenzaprine 5 mg tablet 5 mg PO Q8H PRN (Reason: pain (scale score 7-10)) 5 Days Qty: 14 0RF amoxicillin-pot clavulanate 875-125 mg tablet 1 tab PO BID 7 Days Qty: 14 0RF Referrals: Venus Berry NP [Primary Care Provider] - Stand Alone Forms: Work/School Release Print Language: Liberian
[2023-08-13 07:34] VITALS: BP 103/76; PULSE 80; RESP 14; O2SAT 96
[2023-08-13 07:49] VITALS: BP 103/76; PULSE 80; RESP 14; TEMP -17.7; TEMP 0; O2SAT 96
== END 2023-08-13 07:50 | disposition home or self-care (01) ==
PROVIDERS: Emergency Provider Emergency Medicine; PCP Nurse Practitioner Family
DX: M16.0 Bilateral primary osteoarthritis of hip (principal); Z79.899 Other long term (current) drug therapy
CPT/HCPCS: 99283; 99284